=== PATIENT | male | born 1950 | race Caucasian/White ===

== ENCOUNTER 2017-11-20 04:39 | Inpatient (IN) | payer MEDICARE, OTHER, MEDICAID ==
[2017-11-20] MEDS: ONDANSETRON 4 MG INJ IV ×4 (05:20→11:56)
[2017-11-20] MEDS: morphine 4 MG/ML VIAL IV (05:20)
[2017-11-20] MEDS: SOD CHLORIDE 0.9% 500 ML IV (05:20)
[2017-11-20 05:31] LABS: ADD MAN DIFF? NO
[2017-11-20 05:32] LABS: BASOPHIL # 0.1 10^3/ul (0.0-0.1); BASOPHILS % 0.7 % (0.0-2.0); EOSINOPHILS % 0.4 % (0.0-7.0); HEMATOCRIT 37.7 % (42.0-52.0); HEMOGLOBIN 12.6 g/dl (14.0-18.0); LYMPHOCYTES # 1.5 10^3/ul (0.8-2.9); LYMPHOCYTES % 15.2 % (15.0-51.0); MEAN CORPUSCULAR HEMOGLOBIN 29.8 pg (29.0-33.0); MEAN CORPUSCULAR HGB CONC 33.4 g/dl (32.0-37.0); MEAN CORPUSCULAR VOLUME 89.1 fl (82.0-101.0); MEAN PLATELET VOLUME 11.1 fl (7.4-10.4); MONOCYTE # 0.5 10^3/ul (0.3-0.9); NEUTROPHIL # 7.7 10^3/ul (1.6-7.5); NEUTROPHILS % 78.1 % (39.0-77.0); PLATELET COUNT 262 10^3/UL (140-415); RED BLOOD COUNT 4.23 10^6/ul (4.70-6.10); RED CELL DISTRIBUTION WIDTH 13.2 % (11.5-14.5)
[2017-11-20 05:32] LABS: WHITE BLOOD COUNT 9.8 10^3/ul (4.8-10.8)
[2017-11-20 05:42] LABS: ADD UMIC YES; UR ASCORBIC ACID 40 mg/dL (NEGATIVE); UR BILIRUBIN (Dip) NEGATIVE (NEGATIVE); UR BLOOD (Dip) NEGATIVE (NEGATIVE); UR CLARITY CLEAR (CLEAR); UR COLOR YELLOW (YELLOW); UR GLUCOSE (Dip) 2+ mg/dL (NEGATIVE); UR KETONES (Dip) TRACE mg/dL (NEGATIVE); UR LEUKOCYTE ESTERASE (Dip) NEGATIVE Leu/ul (NEGATIVE); UR MUCUS MODERATE /HPF (NONE SEEN); UR NITRITE (Dip) NEGATIVE (NEGATIVE); UR RBC 1 /HPF (0-5); UR SPECIFIC GRAVITY (Dip) 1.028 (1.003-1.030); UR TOTAL PROTEIN (Dip) 1+ mg/dl (NEGATIVE); UR UROBILINOGEN (Dip) 2+ mg/dL (NEGATIVE); UR WBC 0 /HPF (0-5)
[2017-11-20] MEDS: HYDROmorphONE 0.5 MG/0.5 ML SYG IV ×4 (05:42→11:56)
[2017-11-20 06:09] LABS: ALANINE AMINOTRANSFERASE 24 IU/L (13-69); ALBUMIN 4.2 g/dl (3.3-4.9); ALBUMIN/GLOBULIN RATIO 1.44; ALKALINE PHOSPHATASE 129 IU/L (42-121); ANION GAP 19 (8-16); ASPARTATE AMINO TRANSFERASE 25 IU/L (15-46); BILIRUBIN,INDIRECT 0.3 mg/dl (0-1.1); BILIRUBIN,TOTAL 0.3 mg/dl (0.2-1.3); BLOOD UREA NITROGEN 21 mg/dl (7-20); CALCIUM 9.3 mg/dl (8.4-10.2); CARBON DIOXIDE 28 mmol/L (21-31); CHLORIDE 103 mmol/L (97-110); CREATININE 0.92 mg/dl (0.61-1.24); GLUCOSE 272 mg/dl (70-220); LIPASE 157 U/L (23-300); POTASSIUM 4.2 mmol/L (3.5-5.1); SODIUM 146 mmol/L (135-144); TOTAL PROTEIN 7.1 g/dl (6.1-8.1)
[2017-11-20] MEDS: SOD CHLORIDE 0.9% 1,000 ML IV ×2 (06:39→08:30)
[2017-11-20] MEDS ORDERED: EPHEDrine SULFATE 50 MG/5 ML SYG (07:00)
[2017-11-20] MEDS: ERTAPENEM SODIUM 1 GM in SOD CHLORIDE 0.9% 100 ML IVPB (07:14)
[2017-11-20] MEDS ORDERED: ACETAMINOPHEN 325 MG TAB PO (08:00)
[2017-11-20] MEDS ORDERED: ONDANSETRON 4 MG INJ IV ×2 (08:00→19:30)
[2017-11-20] MEDS ORDERED: NITROGLYCERIN (SL) 0.4 MG TAB SL (09:00)
[2017-11-20] MEDS ORDERED: DEXTROSE 50% 50 ML SYRINGE IV ×2 (09:30)
[2017-11-20] MEDS ORDERED: GLUCOSE GEL 15 GRAM TUBE PO ×2 (09:30)
[2017-11-20] MEDS ORDERED: GLUCOSE GEL 15 GRAM TUBE BUCCAL (09:30)
[2017-11-20] MEDS ORDERED: GLUCAGON 1 MG INJ IM (09:30)
[2017-11-20] MEDS: CITALOPRAM 20 MG TAB PO (12:03)
[2017-11-20] MEDS: ASPIRIN (EC) 81 MG TAB PO (12:03)
[2017-11-20] MEDS: INSULIN ASPART [NOVOLOG] 3 ML PEN SC ×6 (12:04→23:20)
[2017-11-20] MEDS: PANTOPRAZOLE (EC) 40 MG TAB PO (12:04)
[2017-11-20] MEDS: BENAZEPRIL 40 MG TAB PO (13:01)
[2017-11-20] MEDS: PIPER-TAZO 3.375 GM IV (PMX) 100 ML IVPB ×2 (14:27→22:12)
[2017-11-20] MEDS: morphine 2 MG INJ IV ×2 (14:27→17:14)
[2017-11-20 16:28] LABS: INR 1.02; PROTIME 13.5 Sec (11.9-14.9); PT RATIO 1.1
[2017-11-20] MEDS ORDERED: NEOSTIGMINE 3 MG/3 ML SYRINGE (18:15)
[2017-11-20] MEDS ORDERED: ROPIVACAINE 0.5 % 30 ML VIAL (18:15)
[2017-11-20] MEDS ORDERED: PROPOFOL 20 ML (18:16)
[2017-11-20] MEDS ORDERED: MIDAZOLAM 1 MG/ML 2 ML INJ (18:16)
[2017-11-20] MEDS ORDERED: METOCLOPRAMIDE 10 MG INJ (18:17)
[2017-11-20] MEDS ORDERED: ONDANSETRON 4 MG INJ (18:17)
[2017-11-20] MEDS ORDERED: morphine 2 MG INJ IV (18:30)
[2017-11-20] MEDS ORDERED: FENTAnyl 50 MCG/ML VIAL (19:09)
[2017-11-20] MEDS: LIDOCAINE 1% (MPF) 30 ML INJ (19:10)
[2017-11-20] MEDS: BUPIVACAINE 0.25%/EPI (MDV) 50 ML VIAL INJ ×2 (19:10→19:50)
[2017-11-20] MEDS ORDERED: METOPROLOL 5 MG INJ (19:20)
[2017-11-20] MEDS ORDERED: hydrALAzine 20 MG INJ IV (19:30)
[2017-11-20] MEDS ORDERED: DIPHENHYDRAMINE 50 MG INJ IV (19:30)
[2017-11-20] MEDS ORDERED: LABETALOL HCL 20MG INJ IV (19:30)
[2017-11-20] MEDS ORDERED: MEPERIDINE 25 MG INJ IV (19:30)
[2017-11-20] MEDS ORDERED: HYDROmorphONE (0.2 MG/ML) 10ML SYG IV ×3 (19:30)
[2017-11-20] MEDS ORDERED: ROCURONIUM 50 MG INJ (19:45)
[2017-11-20] MEDS ORDERED: GLYCOPYRROLATE 0.4 MG INJ (19:46)
[2017-11-20] MEDS: LIDOCAINE 1% (MPF) 30 ML INJ INJ (19:50)
[2017-11-20] MEDS: ATORVASTATIN 40 MG TAB PO (21:00)
[2017-11-20] MEDS: INSULIN GLARGINE [LANtus] 3 ML PEN SC (23:19)
[2017-11-21] MEDS: INSULIN ASPART [NOVOLOG] 3 ML PEN SC ×9 (01:35→20:57)
[2017-11-21] MEDS: morphine 2 MG INJ IV ×2 (01:38→08:43)
[2017-11-21] MEDS: ACCU-CHEK XX (02:26)
[2017-11-21 04:46] LABS: ADD MAN DIFF? NO
[2017-11-21 04:50] LABS: BASOPHIL # 0.1 10^3/ul (0.0-0.1); BASOPHILS % 0.3 % (0.0-2.0); EOSINOPHILS # 0.1 10^3/ul (0.0-0.5); EOSINOPHILS % 0.3 % (0.0-7.0); HEMATOCRIT 33.2 % (42.0-52.0); HEMOGLOBIN 11.1 g/dl (14.0-18.0); LYMPHOCYTES # 1.5 10^3/ul (0.8-2.9); LYMPHOCYTES % 7.2 % (15.0-51.0); MEAN CORPUSCULAR HEMOGLOBIN 30.2 pg (29.0-33.0); MEAN CORPUSCULAR HGB CONC 33.4 g/dl (32.0-37.0); MEAN CORPUSCULAR VOLUME 90.5 fl (82.0-101.0); MEAN PLATELET VOLUME 10.7 fl (7.4-10.4); MONOCYTE # 1.4 10^3/ul (0.3-0.9); MONOCYTES % 6.7 % (0.0-11.0); NEUTROPHIL # 17.2 10^3/ul (1.6-7.5); NEUTROPHILS % 85.2 % (39.0-77.0); PLATELET COUNT 215 10^3/UL (140-415); RED BLOOD COUNT 3.67 10^6/ul (4.70-6.10); RED CELL DISTRIBUTION WIDTH 13.2 % (11.5-14.5)
[2017-11-21 04:50] LABS: WHITE BLOOD COUNT 20.2 10^3/ul (4.8-10.8)
[2017-11-21] MEDS: PIPER-TAZO 3.375 GM IV (PMX) 100 ML IVPB ×3 (05:13→21:03)
[2017-11-21] MEDS: HYDROCODONE/APAP (5/325) TAB PO ×4 (05:23→23:43)
[2017-11-21 05:33] LABS: ALANINE AMINOTRANSFERASE 44 IU/L (13-69); ALBUMIN 3.2 g/dl (3.3-4.9); ALBUMIN/GLOBULIN RATIO 1.18; ALKALINE PHOSPHATASE 76 IU/L (42-121); ANION GAP 13 (8-16); ASPARTATE AMINO TRANSFERASE 51 IU/L (15-46); BILIRUBIN,INDIRECT 0.9 mg/dl (0-1.1); BILIRUBIN,TOTAL 0.9 mg/dl (0.2-1.3); BLOOD UREA NITROGEN 20 mg/dl (7-20); CALCIUM 8.5 mg/dl (8.4-10.2); CARBON DIOXIDE 27 mmol/L (21-31); CHLORIDE 107 mmol/L (97-110); CREATININE 0.92 mg/dl (0.61-1.24); GLUCOSE 185 mg/dl (70-220); MAGNESIUM 1.8 mg/dl (1.7-2.5); SODIUM 143 mmol/L (135-144); TOTAL PROTEIN 5.9 g/dl (6.1-8.1)
[2017-11-21] MEDS: PANTOPRAZOLE (EC) 40 MG TAB PO (08:43)
[2017-11-21] MEDS: CITALOPRAM 20 MG TAB PO (08:43)
[2017-11-21] MEDS: ASPIRIN (EC) 81 MG TAB PO (08:43)
[2017-11-21] MEDS: BENAZEPRIL 40 MG TAB PO (08:44)
[2017-11-21] MEDS: HYDROmorphONE 0.5 MG/0.5 ML SYG IV ×3 (10:21→21:03)
[2017-11-21] MEDS: DOCUSATE SODIUM 250 MG CAP PO (16:06)
[2017-11-21 20:53] LABS: LACTIC ACID 1.1 mmol/L (0.5-2.0)
[2017-11-21] MEDS: INSULIN GLARGINE [LANtus] 3 ML PEN SC (20:56)
[2017-11-21] MEDS: ATORVASTATIN 40 MG TAB PO (20:56)
[2017-11-22] MEDS: ACCU-CHEK XX (02:00)
[2017-11-22 05:11] LABS: ADD MAN DIFF? NO; BASOPHIL # 0.1 10^3/ul (0.0-0.1); BASOPHILS % 0.3 % (0.0-2.0); EOSINOPHILS # 0.2 10^3/ul (0.0-0.5); HEMATOCRIT 33.1 % (42.0-52.0); HEMOGLOBIN 10.9 g/dl (14.0-18.0); LYMPHOCYTES # 1.2 10^3/ul (0.8-2.9); LYMPHOCYTES % 7.5 % (15.0-51.0); MEAN CORPUSCULAR HEMOGLOBIN 29.5 pg (29.0-33.0); MEAN CORPUSCULAR HGB CONC 32.9 g/dl (32.0-37.0); MEAN CORPUSCULAR VOLUME 89.5 fl (82.0-101.0); MEAN PLATELET VOLUME 10.8 fl (7.4-10.4); MONOCYTES % 6.2 % (0.0-11.0); NEUTROPHIL # 13.6 10^3/ul (1.6-7.5); NEUTROPHILS % 84.5 % (39.0-77.0); PLATELET COUNT 207 10^3/UL (140-415)
[2017-11-22 05:41] LABS: MAGNESIUM 1.9 mg/dl (1.7-2.5)
[2017-11-22 06:06] LABS: ALANINE AMINOTRANSFERASE 40 IU/L (13-69); ALBUMIN 3.3 g/dl (3.3-4.9); ALBUMIN/GLOBULIN RATIO 1.17; ALKALINE PHOSPHATASE 85 IU/L (42-121); ANION GAP 11 (8-16); ASPARTATE AMINO TRANSFERASE 43 IU/L (15-46); BILIRUBIN,INDIRECT 0.8 mg/dl (0-1.1); BILIRUBIN,TOTAL 0.8 mg/dl (0.2-1.3); BLOOD UREA NITROGEN 22 mg/dl (7-20); CALCIUM 8.8 mg/dl (8.4-10.2); CARBON DIOXIDE 29 mmol/L (21-31); CHLORIDE 104 mmol/L (97-110); CREATININE 0.88 mg/dl (0.61-1.24); GLUCOSE 162 mg/dl (70-220); POTASSIUM 4.1 mmol/L (3.5-5.1); SODIUM 140 mmol/L (135-144); TOTAL PROTEIN 6.1 g/dl (6.1-8.1)
[2017-11-22] MEDS: PIPER-TAZO 3.375 GM IV (PMX) 100 ML IVPB ×3 (06:06→20:54)
[2017-11-22] MEDS: HYDROCODONE/APAP (5/325) TAB PO ×3 (07:37→20:54)
[2017-11-22] MEDS: INSULIN ASPART [NOVOLOG] 3 ML PEN SC ×7 (07:50→20:45)
[2017-11-22] MEDS: PANTOPRAZOLE (EC) 40 MG TAB PO (08:36)
[2017-11-22] MEDS: ASPIRIN (EC) 81 MG TAB PO (08:37)
[2017-11-22] MEDS: CITALOPRAM 20 MG TAB PO (08:37)
[2017-11-22] MEDS: BENAZEPRIL 40 MG TAB PO (08:37)
[2017-11-22] MEDS: DOCUSATE SODIUM 250 MG CAP PO (08:37)
[2017-11-22] MEDS ORDERED: morphine LIQ (10 MG/5 ML) CUP PO (17:30)
[2017-11-22] MEDS: ATORVASTATIN 40 MG TAB PO (20:43)
[2017-11-22] MEDS: INSULIN GLARGINE [LANtus] 3 ML PEN SC (20:44)
[2017-11-23] MEDS: ACCU-CHEK XX (02:00)
[2017-11-23] MEDS: HYDROCODONE/APAP (5/325) TAB PO ×3 (02:33→20:11)
[2017-11-23] MEDS: hydrALAzine 20 MG INJ IV ×2 (02:36→18:35)
[2017-11-23] MEDS: PIPER-TAZO 3.375 GM IV (PMX) 100 ML IVPB ×3 (05:17→21:44)
[2017-11-23 05:38] LABS: ADD MAN DIFF? NO
[2017-11-23 05:47] LABS: BASOPHILS % 0.3 % (0.0-2.0); EOSINOPHILS # 0.4 10^3/ul (0.0-0.5); EOSINOPHILS % 3.3 % (0.0-7.0); HEMATOCRIT 33.7 % (42.0-52.0); HEMOGLOBIN 11.3 g/dl (14.0-18.0); LYMPHOCYTES # 1.8 10^3/ul (0.8-2.9); MEAN CORPUSCULAR HEMOGLOBIN 29.7 pg (29.0-33.0); MEAN CORPUSCULAR HGB CONC 33.5 g/dl (32.0-37.0); MEAN CORPUSCULAR VOLUME 88.7 fl (82.0-101.0); MEAN PLATELET VOLUME 11.1 fl (7.4-10.4); MONOCYTE # 0.6 10^3/ul (0.3-0.9); MONOCYTES % 5.4 % (0.0-11.0); NEUTROPHIL # 8.2 10^3/ul (1.6-7.5); NEUTROPHILS % 74.5 % (39.0-77.0); PLATELET COUNT 230 10^3/UL (140-415); RED CELL DISTRIBUTION WIDTH 12.7 % (11.5-14.5)
[2017-11-23 05:47] LABS: WHITE BLOOD COUNT 10.9 10^3/ul (4.8-10.8)
[2017-11-23] MEDS: INSULIN ASPART [NOVOLOG] 3 ML PEN SC ×7 (07:50→20:24)
[2017-11-23] MEDS: CITALOPRAM 20 MG TAB PO (08:40)
[2017-11-23] MEDS: DOCUSATE SODIUM 250 MG CAP PO (08:40)
[2017-11-23] MEDS: BENAZEPRIL 40 MG TAB PO (08:40)
[2017-11-23] MEDS: PANTOPRAZOLE (EC) 40 MG TAB PO (08:40)
[2017-11-23] MEDS: ASPIRIN (EC) 81 MG TAB PO (08:40)
[2017-11-23] MEDS: HYDROmorphONE 0.5 MG/0.5 ML SYG IV ×4 (13:26→18:46)
[2017-11-23] MEDS: AMLODIPINE 10 MG TAB PO (16:30)
[2017-11-23] MEDS: ATORVASTATIN 40 MG TAB PO (20:11)
[2017-11-23] MEDS: INSULIN GLARGINE [LANtus] 3 ML PEN SC (20:23)
[2017-11-24] MEDS: ACCU-CHEK XX (02:02)
[2017-11-24] MEDS: HYDROCODONE/APAP (5/325) TAB PO ×3 (04:59→12:04)
[2017-11-24] MEDS: PIPER-TAZO 3.375 GM IV (PMX) 100 ML IVPB (05:00)
[2017-11-24] MEDS: INSULIN ASPART [NOVOLOG] 3 ML PEN SC ×4 (07:50→11:40)
[2017-11-24] MEDS: CITALOPRAM 20 MG TAB PO (08:35)
[2017-11-24] MEDS: PANTOPRAZOLE (EC) 40 MG TAB PO (08:35)
[2017-11-24] MEDS: DOCUSATE SODIUM 250 MG CAP PO (08:35)
[2017-11-24] MEDS: ASPIRIN (EC) 81 MG TAB PO (08:36)
[2017-11-24] MEDS: BENAZEPRIL 40 MG TAB PO (08:36)
[2017-11-24] MEDS: AMLODIPINE 10 MG TAB PO (08:36)
== END 2017-11-24 12:40 | disposition home or self-care (01) | DRG 418 ==
LOC: E/R 04:39 → MS3 07:59 → MS1 18:57
PROC: 0FT44ZZ Resection of Gallbladder, Percutaneous Endoscopic Approach (ICD-10-PCS; principal; 2017-11-20 14:30)
PROC: 0FB04ZX Excision of Liver, Percutaneous Endoscopic Approach, Diagnostic (ICD-10-PCS; 2017-11-20 14:30)
DX: K80.00 Calculus of gallbladder with acute cholecystitis without obstruction (principal); E87.0 Hyperosmolality and hypernatremia; I10 Essential (primary) hypertension; E11.65 Type 2 diabetes mellitus with hyperglycemia; E78.5 Hyperlipidemia, unspecified; F32.9 Major depressive disorder, single episode, unspecified; K76.0 Fatty (change of) liver, not elsewhere classified; E66.3 Overweight; M19.90 Unspecified osteoarthritis, unspecified site; D64.9 Anemia, unspecified; Z68.29 Body mass index [BMI] 29.0-29.9, adult; Z71.3 Dietary counseling and surveillance; Z79.4 Long term (current) use of insulin
CPT/HCPCS: 36415; 71045; 74176; 80053; 81001; 82962; 83605; 83690; 83735; 85025; 85610; 88304; 88307; 88313; 88341; 88342; 93005; 96374; 96375; 96376; 99285-25

== ENCOUNTER 2018-08-05 11:44 | Emergency (ER) | payer MEDICARE, OTHER | END 2018-08-05 14:15 | disposition home or self-care (01) | LOC: FTE 11:44 | DX: I10 Essential (primary) hypertension (principal); Z79.82 Long term (current) use of aspirin; Z79.4 Long term (current) use of insulin | CPT/HCPCS: 93005; 99283-25 ==